=== PATIENT | female | born 1985 | race Caucasian/White ===

== ENCOUNTER → 2016-07-04 | Outpatient (CLI) | payer OTHER, MEDICAID ==
[~2016-07-04] MED LIST: ALPR0.25 PO; NOR10T
== END | disposition home or self-care (01) ==
LOC: LAB 11:24
PROVIDERS: ATTEND Obstetrics & Gynecology
DX: Z01.811 Encounter for preprocedural respiratory examination (principal)

== ENCOUNTER 2017-09-17 20:35 | Emergency (ER) | payer OTHER, MEDICAID ==
[~2017-09-17] VITALS: Ht 162.6 cm; Wt 49.9 kg
[2017-09-17] MEDS ORDERED: SODIUM CHLORIDE 0.9% 1,000 ML IV ONE ×2 (21:00→23:00)
[2017-09-17] MEDS ORDERED: PANTOPRAZOLE 40 MG/10 ML VIAL IV STA (21:13)
[2017-09-17] MEDS ORDERED: SODIUM CHLORIDE 0.9% 1,000 ML IVB ONE (21:13)
[2017-09-17] MEDS ORDERED: PANTOPRAZOLE 40 MG/10 ML VIAL IV ONE (21:15)
[2017-09-17 21:29] VITALS: BP 110/70
[2017-09-17] MEDS ORDERED: PROCHLORPERAZINE EDISYLATE 5 MG/ML 2ML VIAL ONE (21:29)
[2017-09-17] MEDS ORDERED: PROCHLORPERAZINE EDISYLATE 5 MG/ML 2ML VIAL IV ONE (21:30)
[2017-09-17 22:02] LABS: Magnesium 2.1 mg/dL (1.6-2.6)
[2017-09-17] MEDS ORDERED: ONDANSETRON HCL 4 MG/2 ML VIAL ONE (22:47)
[2017-09-17 22:50] LABS: Basophils # (auto) 0 uL; Basophils % (auto) 0.2 % (0.0-2.0); Eosinophils # (auto) 0 uL; Hematocrit 37.6 % (36.0-46.0); Hemoglobin 12.5 g/dL (12.2-16.2); Lymphocytes # (auto) 0.9 uL; Mean Corpuscular Hemoglobin 29.7 pg (28.0-32.0); Mean Corpuscular Hgb Conc. 33.3 g/dL (32.0-36.0); Mean Corpuscular Volume 89.2 fL (80.0-100.0); Monocytes # (auto) 0.5 uL; Monocytes % (auto) 4.4 % (0.0-12.0); Neutrophils # (auto) 9.6 uL; Neutrophils % (auto) 87.4 % (37.0-80.0); Platelet Count (auto) 248 10^3/uL (140-450); Red Blood Cells 4.22 10^6/uL (4.0-5.20); Red Cell Distribution Width 14.4 % (11.8-14.3)
[2017-09-17] MEDS ORDERED: ONDANSETRON HCL 4 MG/2 ML VIAL IV ONE (23:00)
[2017-09-17 23:03] LABS: Alanine Aminotransferase 39 U/L (13-56); Albumin 4.3 g/dL (3.4-5.0); Anion Gap 16 (5-15); Aspartate Aminotransferase 54 U/L (15-37); BUN/Creatinine Ratio 18.1; Blood Alcohol < 3.0 mg/dL (0-5); Blood Urea Nitrogen 15 mg/dL (7-18); Calcium 9.1 mg/dL (8.5-10.1); Carbon Dioxide 20 mmol/L (21-32); Chloride 106 mmol/L (98-107); GFR African American 102 mL/min; GFR Non-African American 84 mL/min; Glucose 139 mg/dL (74-106); Potassium 3.7 mmol/L (3.5-5.1); Sodium 142 mmol/L (136-145)
[2017-09-17 23:17] LABS: Alkaline Phosphatase 47 U/L (45-117); Bilirubin, Total 0.6 mg/dL (0.2-1.0); Total Protein 6.9 g/dL (6.4-8.2)
== END 2017-09-18 00:39 | disposition home or self-care (01) ==
LOC: ER 20:35
DX: E86.0 Dehydration (principal); T67.5XXA Heat exhaustion, unspecified, initial encounter; K50.90 Crohn's disease, unspecified, without complications; F12.10 Cannabis abuse, uncomplicated; Z88.8 Allergy status to other drugs, medicaments and biological substances; Z90.710 Acquired absence of both cervix and uterus; X30.XXXA Exposure to excessive natural heat, initial encounter; Y93.9 Activity, unspecified; Y92.828 Other wilderness area as the place of occurrence of the external cause; Y99.8 Other external cause status
CPT/HCPCS: 36415; 80053; 80320; 82010; 82962; 83690; 83735; 85025; 94761; 96361; 96374; 96375; 99285; C9113; J0780; J2405; J7030

== ENCOUNTER 2023-02-07 09:13 | Emergency (ER) | payer MEDICAID, OTHER ==
[~2023-02-07] VITALS: Ht 162.6 cm; Wt 64.1 kg
[2023-02-07] MEDS ORDERED: KETOROLAC TROMETH 60MG/2ML VIAL IM ONE (12:15)
[2023-02-07] MEDS ORDERED: METOCLOPRAMIDE HCL 5MG/ml INJ 2ml VIAL IM ONE (12:15)
[2023-02-07] MEDS ORDERED: CYCL-838 PO (15:54)
[2023-02-07] MEDS ORDERED: HYDR-4902 PO (15:54)
[2023-02-07 16:40] VITALS: BP 121/90; PULSE 70; RESP 18; TEMP 97.9; O2SAT 97
== END 2023-02-07 16:41 | disposition home or self-care (01) ==
LOC: ER 09:13
DX: S00.03XA Contusion of scalp, initial encounter (principal); S40.012A Contusion of left shoulder, initial encounter; M62.838 Other muscle spasm; F12.10 Cannabis abuse, uncomplicated; J45.909 Unspecified asthma, uncomplicated; K21.9 Gastro-esophageal reflux disease without esophagitis; Z98.51 Tubal ligation status; Z90.710 Acquired absence of both cervix and uterus; V43.52XA Car driver injured in collision with other type car in traffic accident, initial encounter; Y93.89 Activity, other specified; Y92.89 Other specified places as the place of occurrence of the external cause; Y99.8 Other external cause status
CPT/HCPCS: 70450; 72125; 73030; 73562; 96372; 99285; J1885; J2765

== ENCOUNTER 2024-12-19 18:37 | Emergency (ER) | payer OTHER, MEDICAID ==
[~2024-12-19] VITALS: Ht 165.1 cm; Wt 77.5 kg
[~2024-12-19 18:37] MED LIST changes: -ALPR0.25 PO; +CYCL-838 PO; +HYDR-4902 PO; -NOR10T
[2024-12-19 18:45] VITALS: BP 105/76; PULSE 87; RESP 18; TEMP 98.2; O2SAT 95
--- NOTE | 2024-12-19 18:50 | ED.PDOC ---
Altered Mental Status HPI Comments 39-year-old female who came to ER via EMS for alcohol intoxication. Patient was having drinks with her at home earlier today. She apparently passed out lost consciousness, so performed CPR while paramedics were called. Upon arrival paramedics patient awake, but intoxicated with alcohol and with pinpoint pupils. Systolic blood pressure at 89. Patient started on IV fluids Chief Complaint: ETOH Time Seen by MD: 18:50 Primary Care Provider: CLARENCE Reeves Notes: Firer Low Pressure Notes Allergies: Coded Allergies: Naproxen (Verified Allergy, Unknown, THROWING UP THE BLOOD . REFUSED TO TAKE NAPROXEN, 07/07/16) Home Meds Active Scripts Hydrocodone-Acetaminophen (Hydrocodone Bitartrate/AC 5-325 mg) 1 Tab Tab, 1 TAB PO BID for 7 Days, #14 TAB Prov:DAGO SUÁREZ MD 02/07/23 Cyclobenzaprine Hcl (CYCLOBENZAPRINE HCL) 7.5 Mg Tab, 7.5 MG PO BID for 10 Days, #20 TAB Prov:DAGO SUÁREZ MD 02/07/23 Information Source: Patient, Emergency Med Personnel Mode of Arrival: EMS Severity: Unable to Care for Self Timing: Minutes Duration: Since onset Quality: Decreased Alertness, Change in Behavior Recent: Medication/Drug Abuse (Alcohol) Past Medical History PAST MEDICAL HISTORY: Asthma, GERD, TIA Surgical History: , Hysterectomy, Tubal Ligation IMPLEMENTATION TECHNICIAN History: No Pertinent IMPLEMENTATION TECHNICIAN History Family History Family History: Reviewed,noncontributory to illness Social History Smoker: Non-Smoker Alcohol: Occasionally Drugs: Marijuana Lives In: Home Unable to Obtain due to: Altered Mental Status, Other (Intoxicated with alcohol) Physical Exam General Appearance: No Apparent Distress, Normal HEENT: Normal ENT Inspection, Pharynx Normal, TMs Normal Neck: Full Range of Motion, Non-Tender, Normal, Normal Inspection Respiratory: Chest Non-Tender, Lungs Clear, No Accessory Muscle Use, No Respiratory Distress, Normal Breath Sounds Cardiovascular: No Edema, No JVD, No Murmur, No Gallop, Normal Peripheral Pulses, Regular Rate/Rhythm Breast Exam: Deferred Gastrointestinal: No Organomegaly, Non Tender, No Pulsatile Mass, Normal Bowel Sounds, Soft Genitalia: Deferred Pelvic: Deferred Rectal: Deferred Extremities: No calf tenderness, Normal capillary refill, Normal inspection, Normal range of motion, Non-tender, No pedal edema Musculoskeletal : Apperance: Normal Neurologic: Alert, warehouse shipping associate II-XII nml as Tested, No Motor Deficits, Normal Affect, Normal Mood, No Sensory Deficits Cerebellar Function: Normal Reflexes: Normal Skin: Dry, Normal Color, Warm Lymphatic: No Adenopathy Was a procedure done? Was a procedure done?: No Differential Diagnosis (ALOC) Differential Diagnosis: Dehydration, Encephalopathy, Hypoxemia, ETOH Intoxication X-Ray, Labs, Meds, VS Vital Signs Date Time Temp Pulse Resp B/P (MAP) Pulse Ox O2 Delivery O2 Flow Rate FiO2 12/19/24 19:35 Room Air* 0 21 12/19/24 18:45 98.2 87 18 105/76 95 98.2 12/19/24 18:37 77 Lab Test 12/19/24 18:59 12/19/24 18:49 Range/Units White Blood Count 6.6 4.4-10.8 10^3/uL Red Blood Count 4.59 4.0-5.20 10^6/uL Hemoglobin 13.7 12.2-16.2 g/dL Hematocrit 40.5 36.0-46.0 % Mean Corpuscular Volume 88.4 80.0-100.0 fL Mean Corpuscular Hemoglobin 29.8 28.0-32.0 pg Mean Corpuscular Hemoglobin Concent 33.7 32.0-36.0 g/dL Red Cell Distribution Width 13.9 11.8-14.3 % Platelet Count 265 140-450 10^3/uL Mean Platelet Volume 7.8 6.9-10.8 fL Neutrophils (%) (Auto) 55.9 37.0-80.0 % Lymphocytes (%) (Auto) 37.4 10.0-50.0 % Monocytes (%) (Auto) 5.4 0.0-12.0 % Eosinophils (%) (Auto) 0.7 0.0-7.0 % Basophils (%) (Auto) 0.6 0.0-2.0 % Neutrophils # (Auto) 3.7 1.6-8.6 10 ^3/uL Lymphocytes # (Auto) 2.4 0.4-5.4 10 ^3/uL Monocytes # (Auto) 0.4 0-1.3 10 ^3/uL Eosinophils # (Auto) 0 0-0.8 10 ^3/uL Basophils # (Auto) 0 0-0.2 10 ^3/uL Nucleated Red Blood Cells 0.0 % Sodium Level 141 136-145 mmol/L Potassium Level 3.6 3.5-5.1 mmol/L Chloride Level 107 98-107 mmol/L Carbon Dioxide Level 24 20-31 mmol/L Anion Gap 10 5-15 Blood Urea Nitrogen 6 L 9-23 mg/dL Creatinine 0.76 0.550-1.02 mg/dL Glomerular Filtration Rate Calc 101 >90 mL/min BUN/Creatinine Ratio 7.9 L 10.0-20.0 Serum Glucose 101 74-106 mg/dL Calcium Level 8.7 8.7-10.4 mg/dL Total Bilirubin 0.3 0.2-1.0 mg/dL Aspartate Amino Transferase (AST) 18 13-40 U/L Alanine Aminotransferase (ALT) 11 7-40 U/L Alkaline Phosphatase 43 L 46-116 U/L Total Protein 7.0 5.7-8.2 g/dL Albumin 4.7 3.2-4.8 g/dL Salicylates Level < 3.0 -30 mg/dL Acetaminophen Level < 2.0 L 10.0-20.0 UG/ML Plasma/Serum Blood Alcohol 339.9 H <10 mg/dL Urine Opiates Screen Neg NEGATIVE Urine Fentanyl Screen Neg NEGATIVE Urine Barbiturates Screen Neg NEGATIVE Urine Phencyclidine Screen Neg NEGATIVE Urine Amphetamines Screen Neg NEGATIVE Urine Benzodiazepines Screen Neg NEGATIVE Urine Cocaine Screen Neg NEGATIVE Urine Cannabinoids Screen Pos NEGATIVE Time of 1ST Reevaluation: 18:47 Reevaluation 1ST: Unchanged Patient Education/Counseling: Diagnosis, Treatment Family Education/Counseling: No Family Present SEPSIS Sepsis Screen Physician Orders Electrocardigram (12/19/24 18:45) Vital Signs Date Time Temp Pulse Resp B/P (MAP) Pulse Ox O2 Delivery O2 Flow Rate FiO2 12/19/24 19:35 Room Air* 0 21 12/19/24 18:45 98.2 87 18 105/76 95 98.2 12/19/24 18:37 77 Laboratory Tests Test 12/19/24 18:59 White Blood Count 6.6 10^3/uL (4.4-10.8) Departure 1 Departure Time of Disposition: 20:30 Impression: Primary Impression: Alcohol intoxication Additional Impression: Syncope and collapse Disposition: 01 HOME / SELF CARE / HOMELESS Condition: Stable Discharged With: Self Critical Care Note Critical Care Time?: No Stability Stability form required: No Heart Score Heart Score: Heart Score Response (Comments) Value History N/A 0 EKG N/A 0 Age N/A 0 Risk Factors N/A 0 Troponin N/A 0 Total 0 I personally scribed for ALEJANDRA HERNANDEZ MD ([email or web address]) on 12/19/24 at 18:50. Electronically submitted by Cristopher Singh ([facility]). ALEJANDRA HERNANDEZ MD Dec 19, 2024 18:50
[2024-12-19 19:08] LABS: Hematocrit 40.5 % (36.0-46.0); Hemoglobin 13.7 g/dL (12.2-16.2); Mean Corpuscular Hemoglobin 29.8 pg (28.0-32.0); Mean Corpuscular Volume 88.4 fL (80.0-100.0); Nucleated Red Blood Cells % 0.0 %
[2024-12-19 19:23] LABS: Alanine Aminotransferase 11 U/L (7-40); Albumin 4.7 g/dL (3.2-4.8); Anion Gap 10 (5-15); BUN/Creatinine Ratio 7.9 (10.0-20.0); Calcium 8.7 mg/dL (8.7-10.4); Carbon Dioxide 24 mmol/L (20-31); Chloride 107 mmol/L (98-107); Glucose 101 mg/dL (74-106); Potassium 3.6 mmol/L (3.5-5.1); Sodium 141 mmol/L (136-145); Total Protein 7.0 g/dL (5.7-8.2)
[2024-12-19 19:24] LABS: Acetaminophen < 2.0 UG/ML (10.0-20.0); Salicylate < 3.0 mg/dL (-30)
[2024-12-19 19:25] LABS: Alkaline Phosphatase 43 U/L (46-116); Bilirubin, Total 0.3 mg/dL (0.2-1.0); Blood Urea Nitrogen 6 mg/dL (9-23)
[2024-12-19 19:54] LABS: Cannabinoid Screen, Urine Pos (NEGATIVE)
[2024-12-19 19:55] LABS: Amphetamine Screen, Urine Neg (NEGATIVE); Barbiturate Scree,Urine Neg (NEGATIVE); Benzodiazephine Screen, Urine Neg (NEGATIVE); Cocaine Screen, Urine Neg (NEGATIVE); Opiate Scree,Urine Neg (NEGATIVE); Phencyclidine Screen, Urine Neg (NEGATIVE)
--- NOTE | 2024-12-23 10:11 | ECG ---
[facility] Test Date: 2024-12-19 Test Time: 18:36:21 Pat Name: OPHELIA MCCALLUM Department: Room: Gender: F Business Technology Analyst: ADRIEN : 1985 Requested By: ALEJANDRA HERNANDEZ Order Number: [id number] Reading MD: Nic Garner Measurements Intervals [place] Rate: 77 P: -11 [place]: 185 QRS: 88 QRSD: 81 T: 1 QT: 389 QTc: 441 Interpretive Statements Sinus rhythm Nonspecific T abnormalities, anterior leads Electronically Signed On 12-25-2024 14:49:58 PDT by Nic Garner Please click the below link to view image of tracing.
== END 2024-12-19 20:35 | disposition home or self-care (01) ==
LOC: ER 18:37 → EDBD 18:37 → ER 20:35
DX: F10.129 Alcohol abuse with intoxication, unspecified (principal); J45.909 Unspecified asthma, uncomplicated; K21.9 Gastro-esophageal reflux disease without esophagitis; Z86.73 Personal history of transient ischemic attack (TIA), and cerebral infarction without residual deficits; Z88.6 Allergy status to analgesic agent; Z90.710 Acquired absence of both cervix and uterus; Z98.890 Other specified postprocedural states; Y90.9 Presence of alcohol in blood, level not specified
CPT/HCPCS: 36415; 80053; 80307; 80320; 80329; 85025; 93005